=== PATIENT | female | born 1995 | race Two or more races ===

== ENCOUNTER 2020-01-07 10:14 | Outpatient (CLI) | payer OTHER | END 2020-01-08 14:16 | disposition home or self-care (01) | LOC: OBS/DEL 10:14 | PROVIDERS: ATTEND Specialist | DX: O23.43 Unspecified infection of urinary tract in pregnancy, third trimester (principal); O99.013 Anemia complicating pregnancy, third trimester; D64.89 Other specified anemias ==

== ENCOUNTER 2020-02-28 14:30 | Inpatient (IN) | payer OTHER ==
[~2020-02-28] VITALS: Ht 157.5 cm; Wt 56.2 kg
[2020-03-15] MEDS ORDERED: FERROPLEX PO (01:33)
[2020-03-17] MEDS ORDERED: DERMOPLAST PAIN78 GM TOP (12:37)
[2020-03-17] MEDS ORDERED: HYDROCORTISO453.6 G1 RECTAL (12:37)
[2020-03-17] MEDS ORDERED: FERROUS SULFAT325 M1 PO (12:37)
== END 2020-03-17 15:37 | disposition home or self-care (01) | DRG 807 ==
LOC: OB/GYN 03-15 00:12 → LDR 03-15 00:12 → OB/GYN 03-15 14:55
PROVIDERS: ADMIT Specialist; ATTEND Specialist
PROC: 10E0XZZ Delivery of Products of Conception, External Approach (ICD-10-PCS; principal; 2020-03-15)
PROC: 10907ZC Drainage of Amniotic Fluid, Therapeutic from Products of Conception, Via Natural or Artificial Opening (ICD-10-PCS; 2020-03-15)
PROC: 0W8NXZZ Division of Female Perineum, External Approach (ICD-10-PCS; 2020-03-15)
PROC: 4A1HXFZ Monitoring of Products of Conception, Cardiac Rhythm, External Approach (ICD-10-PCS; 2020-03-15)
DX: O99.02 Anemia complicating childbirth (principal); Z37.0 Single live birth; D64.89 Other specified anemias; Z3A.39 39 weeks gestation of pregnancy; Z20.828 Contact with and (suspected) exposure to other viral communicable diseases

== ENCOUNTER 2022-05-22 11:41 | Inpatient (IN) | payer OTHER ==
[~2022-05-22] VITALS: Ht 157.5 cm; Wt 52.2 kg
[~2022-05-22 11:41] MED LIST: DERMOPLAST PAIN78 GM TOP; FERROPLEX PO; FERROUS SULFAT325 M1 PO; HYDROCORTISO453.6 G1 RECTAL
== END 2022-05-26 14:48 | disposition home or self-care (01) | DRG 833 ==
LOC: LDR 11:41 → OB/GYN 05-23 10:01
PROVIDERS: ADMIT Specialist; ATTEND Specialist
PROC: 30233N1 Transfusion of Nonautologous Red Blood Cells into Peripheral Vein, Percutaneous Approach (ICD-10-PCS; principal; 2022-05-22)
PROC: 4A1HXCZ Monitoring of Products of Conception, Cardiac Rate, External Approach (ICD-10-PCS; 2022-05-22)
PROC: BY4FZZZ Ultrasonography of Third Trimester, Single Fetus (ICD-10-PCS; 2022-05-22)
DX: O99.013 Anemia complicating pregnancy, third trimester (principal); D50.0 Iron deficiency anemia secondary to blood loss (chronic); O35.8XX0 Maternal care for other (suspected) fetal abnormality and damage, not applicable or unspecified; O36.8130 Decreased fetal movements, third trimester, not applicable or unspecified; Z3A.32 32 weeks gestation of pregnancy

== ENCOUNTER 2022-07-08 12:08 | Inpatient (IN) | payer OTHER ==
[~2022-07-08] VITALS: Ht 157.5 cm; Wt 2.7 kg
[2022-07-15] MEDS ORDERED: PRENATAL TABLE1 EAC1 PO (22:10)
[2022-07-18] MEDS ORDERED: IBUPROFEN800 MG PO (11:09)
== END 2022-07-18 12:39 | disposition home or self-care (01) | DRG 788 ==
LOC: LDR 07-15 21:33 → OB/GYN 07-15 21:33
PROVIDERS: ADMIT Specialist; ATTEND Specialist
PROC: 4A1HXCZ Monitoring of Products of Conception, Cardiac Rate, External Approach (ICD-10-PCS; 2022-07-15)
PROC: 10D00Z1 Extraction of Products of Conception, Low, Open Approach (ICD-10-PCS; principal; 2022-07-16 01:00)
DX: O36.8330 Maternal care for abnormalities of the fetal heart rate or rhythm, third trimester, not applicable or unspecified (principal); Z3A.39 39 weeks gestation of pregnancy; Z37.0 Single live birth; Z20.822 Contact with and (suspected) exposure to COVID-19